=== PATIENT | female | born 1995 | race Caucasian/White ===

== ENCOUNTER → 2018-11-14 | Outpatient (CLI) | payer OTHER ==
--- NOTE | 2018-11-14 14:51 | Diagnostic Imaging Report ---
EXAMINATION: CHEST (PA AND LATERAL) CLINICAL INDICATION: 23-year-old female, cystic fibrosis, cough. COMPARISON: None available. FINDINGS: Heart size and mediastinal contours are unremarkable. There is no identified pneumothorax. There is no pleural effusion. There is no identified focal airspace consolidation. IMPRESSION: No identified acute cardiopulmonary abnormality. Dictated by: Dictated on workstation # [id number]
== END ==
LOC: RAD 14:16
PROVIDERS: ATTEND Internal Medicine
DX: E84.9 Cystic fibrosis, unspecified (principal)
CPT/HCPCS: 71046

== ENCOUNTER 2020-05-25 22:02 | Emergency (ER) | payer OTHER ==
[~2020-05-25] VITALS: Ht 170 cm; Wt 70.0 kg
[2020-05-25] MEDS ORDERED: ANTACID SUSP 30 ML UDC (MYLANTA) PO ONE (22:30)
[2020-05-25] MEDS ORDERED: LIDOCAINE 2% VISCOUS 15 ML UDC PO ONE (22:30)
[2020-05-25] MEDS ORDERED: ONDANSETRON 4 MG (ZOFRAN) ORAL DISSOLVE TAB SL STA (22:30)
[2020-05-25] MEDS ORDERED: PANTOPRAZOLE 40 MG (PROTONIX) TAB PO ONE (23:00)
--- NOTE | 2020-05-25 23:02 | ED Abdominal Pain ---
General Chief Complaint: Abdominal/GI Problems Stated Complaint: ABD PAIN,SHARP PAIN,CYTIC FIBROSIS Nursing Triage Note: C/O PAIN IN EPIGASTRIC AREA, VERBALIZES "HURTS SO BAD I CANT TAKE A DEEP BREATH". PATIENT IS ALERT AND ORIENTED, INDEPENDENT IN ROOM CALL LIGHT IN REACH, MONITORING MAINTAINED. Sepsis Screen: No Definite Risk Source of Information: Patient Exam Limitations: No Limitations History of Present Illness Date Seen by Provider: May 25, 2020 Time Seen by Provider: 22:20 Initial Comments This 24-year-old young lady presents to the emergency room with epigastric and lower chest pain. She has pain with deep inspiration. She has cystic fibrosis and takes pancreatic enzymes. She generally does not have any GI issues and denies constipation or diarrhea. She has had pain similar to this in the past that normally resolves when she eats or drinks something. Pain did not resolve with eating or drinking tonight. Her pain started several hours ago tonight. Allergies and Home Medications Allergies Coded Allergies: ibuprofen (Verified Allergy, Intermediate, Hives, 05/25/20) Patient Home Medication List Home Medication List Reviewed: Yes Review of Systems Review of Systems Constitutional: no symptoms reported EENTM: No Symptoms Reported Respiratory: See HPI Cardiovascular: No Symptoms Reported Gastrointestinal: See HPI Genitourinary: No Symptoms Reported Musculoskeletal: no symptoms reported Skin: no symptoms reported Psychiatric/Neurological: No Symptoms Reported Endocrine: No Symptoms Reported Hematologic/Lymphatic: No Symptoms Reported Past Vtziowv-Zvymqi-Kbemce Hx Past Med/Social Hx: Reviewed Nursing Past Med/Soc Hx Patient Social History Alcohol Use: Denies Use Recreational Drug Use: No Recent Foreign Travel: No Contact w/Someone Who Travel: No Recent Infectious Disease Expo: No Recent Hopitalizations: No Physical Abuse: No Sexual Abuse: No Mistreated: No Fear: No Immunizations Up To Date PED Vaccines UTD: Yes Seasonal Allergies Seasonal Allergies: No Past Medical History Surgeries: No Respiratory: Yes (CYSTIC FIBROSIS) Asthma Currently Using CPAP: No Currently Using BIPAP: No Cardiac: No Neurological: No : No Last Menstrual Period: May 11, 2020 Reproductive Disorders: No Genitourinary: No Gastrointestinal: No Musculoskeletal: No Endocrine: No HEENT: No Cancer: No Psychosocial: No Integumentary: No Blood Disorders: No Physical Exam Vital Signs Vital Signs - First Documented 05/25/20 22:15 Temp 36.3 Pulse 64 Resp 18 B/P (MAP) 119/81 (94) Pulse Ox 97 Capillary Refill : Less Than 3 Seconds Height/Weight/BMI Height: '" Weight: lbs. oz. 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, no motor/sensory deficits, alert, normal mood/affect, oriented x 3 Skin: normal color, warm/dry Progress/Results/Core Measures Results/Orders My Orders Orders - JUAN ANTONIO MASON MD Ondansetron Oral Dissolve Tab (Zofran (05/25/20 22:30) Antacid Suspension (Mylanta Suspension (05/25/20 22:30) Lidocaine 2% Viscous 15 Ml (Xylocaine Vi (05/25/20 22:30) Pantoprazole Tablet (Protonix Tablet) (05/25/20 23:00) Medications Given in ED Current Medications Medications Dose Ordered Sig/Yadira Route Start Time Stop Time Status Last Admin Dose Admin Al Hydrox/Mg Hydrox/Simethicone 30 ml ONCE ONCE PO 05/25/20 22:30 05/25/20 22:32 DC 05/25/20 22:35 30 ML Lidocaine HCl 15 ml ONCE ONCE PO 05/25/20 22:30 05/25/20 22:32 DC 05/25/20 22:36 15 ML Pantoprazole Sodium 40 mg ONCE ONCE PO 05/25/20 23:00 05/25/20 23:01 DC 05/25/20 23:02 40 MG Vital Signs/I&O 05/25/20 05/25/20 22:15 23:07 Temp 36.3 Pulse 64 66 Resp 18 18 B/P (MAP) 119/81 (94) 107/76 (94) Pulse Ox 97 97 Blood Pressure Mean: 94 Progress Progress Note : Progress Note Patient received Zofran and a GI cocktail. This improved her pain from 5 or 6 down to 2 or 3. She was satisfied with the improvement. She was further treated with Protonix. Discharge instructions were reviewed and she was invited to call or return if symptoms worsen. Departure Impression Primary Impression: Epigastric pain Disposition: HOME, SELF-CARE Condition: Improved Departure-Patient Inst. Decision time for Depature: 23:00 Referrals: LUKE SUÁREZ MD (PCP/Family) Primary Care Physician Patient Instructions: Acid Reflux and GERD in Adults (DC), Gastritis, Severe Abdominal Pain, Adult (DC) Add. Discharge Instructions: Try an antacid medication such as Pepcid (famotidine) 20 mg twice daily or omeprazole 20 mg daily for the next 2 weeks. Continue to take an antacid for full 2 weeks even if you feel better to lower your stomach time to heal. Avoid the following: Eating large meals, eating close to bedtime, caffeine, carbonation, chocolate, citrus fruits and juices, alcohol, tobacco, tomato products, mints, fatty or greasy foods, spicy foods, NSAID medications such as ibuprofen, or anything else you know irritates your stomach. Call or return to care if you have worsening symptoms. If you follow these measures, your pain should gradually improve over the next several days. All discharge instructions reviewed with patient and/or family. Voiced understanding. JUAN ANTONIO MASON MD May 25, 2020 23:01
[2020-05-25 23:07] VITALS: BP 107/76
== END 2020-05-25 23:07 | disposition home or self-care (01) ==
LOC: EDUNIT# 22:02 → ER 22:04
DX: R10.13 Epigastric pain (principal); Z88.6 Allergy status to analgesic agent
CPT/HCPCS: 99283

== ENCOUNTER 2020-05-26 01:20 | Emergency (ER) | payer OTHER ==
[~2020-05-26] VITALS: Ht 170 cm; Wt 68.2 kg
[2020-05-26] MEDS ORDERED: FAMOTIDINE 20MG/2ML IV (PEPCID) IVP ONE (01:30)
[2020-05-26] MEDS ORDERED: methylPREDNISolone 125 MG (Solu-MEDROL) VIAL IVP ONE (01:30)
[2020-05-26] MEDS ORDERED: diphenhydrAMINE 50 MG/ML INJ (BENADRYL) IVP ONE (01:30)
[2020-05-26 01:38] LABS: BASOPHILS % (AUTO) 0 % (0-10); EOSINOPHILS # (AUTO) 0.1 10^3/uL (0.0-0.3); EOSINOPHILS % (AUTO) 1 % (0-10); HEMATOCRIT 39 % (35-52); HEMOGLOBIN 14.1 G/DL (11.5-16.0); LYMPHOCYTES # (AUTO) 2.9 X 10^3 (1.0-4.0); LYMPHOCYTES % (AUTO) 29 % (12-44); MEAN CORPUSCULAR HEMOGLOBIN 30 PG (25-34); MEAN CORPUSCULAR HGB CONC 36 G/DL (32-36); MEAN CORPUSCULAR VOLUME 84 FL (80-99); MEAN PLATELET VOLUME 10.5 FL (7.4-10.4); MONOCYTES # (AUTO) 0.7 X 10^3 (0.0-1.0); MONOCYTES % (AUTO) 7 % (0-12); NEUTROPHILS # (AUTO) 6.4 X 10^3 (1.8-7.8); NEUTROPHILS % (AUTO) 63 % (42-75); PLATELET COUNT 233 10^3/uL (130-400); WHITE BLOOD COUNT 10.1 10^3/uL (4.3-11.0)
[2020-05-26 01:42] LABS: BILIRUBIN,URINE NEGATIVE (NEGATIVE); CLARITY,URINE CLEAR; COLOR,URINE YELLOW; GLUCOSE, URINE (UA) NEGATIVE (NEGATIVE); KETONES,URINE NEGATIVE (NEGATIVE); LEUKOCYTE ESTERASE ,URINE NEGATIVE (NEGATIVE); NITRITE,URINE NEGATIVE (NEGATIVE); PROTEIN,URINE NEGATIVE (NEGATIVE)
[2020-05-26 01:49] LABS: BACTERIA,URINE NEGATIVE /HPF; SQUAMOUS EPITHELIAL CELL,UR RARE /HPF
[2020-05-26 01:55] LABS: ALANINE AMINOTRANSFERASE 404 U/L (0-55); ALBUMIN 4.3 GM/DL (3.2-4.5); ALKALINE PHOSPHATASE 107 U/L (40-136); BILIRUBIN,TOTAL 0.9 MG/DL (0.1-1.0); BUN/CREATININE RATIO 29; CALCIUM 8.9 MG/DL (8.5-10.1); CARBON DIOXIDE 26 MMOL/L (21-32); CHLORIDE 100 MMOL/L (98-107); CREATININE SERUM 0.75 MG/DL (0.60-1.30); GFR ESTIMATED > 60; GLUCOSE 122 MG/DL (70-105); LIPASE 6 U/L (8-78); POTASSIUM 3.7 MMOL/L (3.6-5.0); SODIUM 136 MMOL/L (135-145); TOTAL PROTEIN 7.3 GM/DL (6.4-8.2)
[2020-05-26] MEDS ORDERED: NS IV 500 ML 500 ML IV ONE (02:17)
--- NOTE | 2020-05-26 02:17 | ED General ---
General Chief Complaint: Allergic Reaction Stated Complaint: ALLERGIC RXN Nursing Triage Note: c/o generalized itching/hives since approx. 0030 Nursing Sepsis Screen: No Definite Risk Source of Information: Patient Exam Limitations: No Limitations History of Present Illness Date Seen by Provider: May 26, 2020 Time Seen by Provider: 02:44 Initial Comments This 24-year-old young lady presents to the emergency room with sudden onset of hives and itching starting around 00:30. She had been seen earlier in the evening at this ER for epigastric pain. She was treated with a GI cocktail and Zofran. She was monitored for a short period of time afterwards and had improved symptoms. She was dismissed home but was given a dose of oral Protonix prior to dismissal. The Protonix was given a little over an hour prior to onset of her rash. She feels like she has some swelling of her face and throat as well. She is in no respiratory distress. There is no obvious swelling of her face, lips, tongue, or throat. She took a dose of cetirizine prior to coming to the emergency room. Allergies and Home Medications Allergies Coded Allergies: ibuprofen (Verified Allergy, Intermediate, Hives, 05/25/20) pantoprazole (Verified Allergy, Intermediate, Hives, 05/26/20) Patient Home Medication List Home Medication List Reviewed: Yes Review of Systems Review of Systems Constitutional: no symptoms reported EENTM: no symptoms reported Respiratory: no symptoms reported Cardiovascular: no symptoms reported Gastrointestinal: see HPI Genitourinary: no symptoms reported Musculoskeletal: no symptoms reported Skin: see HPI Psychiatric/Neurological: No Symptoms Reported Hematologic/Lymphatic: No Symptoms Reported Immunological/Allergic: see HPI Past Lhdhknh-Jvoekd-Vjjcxf Hx Past Med/Social Hx: Reviewed Nursing Past Med/Soc Hx Patient Social History Alcohol Use: Denies Use Recreational Drug Use: No Smoking Status: Never a Smoker Recent Foreign Travel: No Contact w/Someone Who Travel: No Recent Infectious Disease Expo: No Recent Hopitalizations: No Physical Abuse: No Sexual Abuse: No Mistreated: No Fear: No Immunizations Up To Date Tetanus Booster (TDap): Unknown PED Vaccines UTD: Yes Seasonal Allergies Seasonal Allergies: No Past Medical History Surgeries: No Respiratory: Yes (CYSTIC FIBROSIS) Asthma Currently Using CPAP: No Currently Using BIPAP: No Cardiac: No Neurological: No : No Reproductive Disorders: No Genitourinary: No Gastrointestinal: No Musculoskeletal: No Endocrine: No HEENT: No Cancer: No Psychosocial: No Integumentary: No Blood Disorders: No Physical Exam Vital Signs Vital Signs - First Documented 05/26/20 01:20 Temp 37.1 Pulse 57 Resp 18 B/P (MAP) 114/61 (78) Pulse Ox 97 O2 Delivery Room Air Capillary Refill : Less Than 3 Seconds Height, Weight, BMI Height: '" Weight: lbs. oz. kg; 23.00 BMI Method: General Appearance: No Apparent Distress, WD/WN HEENT: PERRL/EOMI, Normal ENT Inspection, Pharynx Normal Neck: Normal Inspection Respiratory: Lungs Clear, Normal Breath Sounds, No Accessory Muscle Use Cardiovascular: Regular Rate, Rhythm, No Edema, No Murmur Gastrointestinal: Normal Bowel Sounds, Non Tender, Soft Extremity: Normal Inspection, No Pedal Edema Neurologic/Psychiatric: Alert, Oriented x3, No Motor/Sensory Deficits, Normal Mood/Affect, urologist md II-XII Norm as Tested Skin: Warm/Dry, Rash (scattered macular erythematous rash, possibly mild hives) Progress/Results/Core Measures Suspected Sepsis Recent Fever Within 48 Hours: No Infection Criteria Present: None New/Unexplained Altered Menta: No Sepsis Screen: No Definite Risk SIRS Temperature: Pulse: 57 Respiratory Rate: 18 Laboratory Tests 05/26/20 01:25: White Blood Count 10.1 Blood Pressure 114 /61 Mean: 78 Laboratory Tests 05/26/20 01:25: Creatinine 0.75, INR Comment 1.0, Platelet Count 233, Total Bilirubin 0.9 Results/Orders Lab Results Laboratory Tests Test 05/26/20 01:25 05/26/20 01:35 Range/Units White Blood Count 10.1 4.3-11.0 10^3/uL Red Blood Count 4.66 4.35-5.85 10^6/uL Hemoglobin 14.1 11.5-16.0 G/DL Hematocrit 39 35-52 % Mean Corpuscular Volume 84 80-99 FL Mean Corpuscular Hemoglobin 30 25-34 PG Mean Corpuscular Hemoglobin Concent 36 32-36 G/DL Red Cell Distribution Width 11.7 10.0-14.5 % Platelet Count 233 130-400 10^3/uL Mean Platelet Volume 10.5 H 7.4-10.4 FL Neutrophils (%) (Auto) 63 42-75 % Lymphocytes (%) (Auto) 29 12-44 % Monocytes (%) (Auto) 7 0-12 % Eosinophils (%) (Auto) 1 0-10 % Basophils (%) (Auto) 0 0-10 % Neutrophils # (Auto) 6.4 1.8-7.8 X 10^3 Lymphocytes # (Auto) 2.9 1.0-4.0 X 10^3 Monocytes # (Auto) 0.7 0.0-1.0 X 10^3 Eosinophils # (Auto) 0.1 0.0-0.3 10^3/uL Basophils # (Auto) 0.0 0.0-0.1 10^3/uL Prothrombin Time 13.7 12.2-14.7 SEC INR Comment 1.0 0.8-1.4 Sodium Level 136 135-145 MMOL/L Potassium Level 3.7 3.6-5.0 MMOL/L Chloride Level 100 98-107 MMOL/L Carbon Dioxide Level 26 21-32 MMOL/L Anion Gap 10 5-14 MMOL/L Blood Urea Nitrogen 22 H 7-18 MG/DL Creatinine 0.75 0.60-1.30 MG/DL Estimat Glomerular Filtration Rate > 60 BUN/Creatinine Ratio 29 Glucose Level 122 H 70-105 MG/DL Calcium Level 8.9 8.5-10.1 MG/DL Corrected Calcium 8.7 8.5-10.1 MG/DL Total Bilirubin 0.9 0.1-1.0 MG/DL Aspartate Amino Transf (AST/SGOT) 681 H 5-34 U/L Alanine Aminotransferase (ALT/SGPT) 404 H 0-55 U/L Alkaline Phosphatase 107 40-136 U/L Total Protein 7.3 6.4-8.2 GM/DL Albumin 4.3 3.2-4.5 GM/DL Lipase 6 L 8-78 U/L Serum Test, Qualitative NEGATIVE NEGATIVE Urine Color YELLOW Urine Clarity CLEAR Urine pH 6.0 5-9 Urine Specific [place] <=1.005 1.016-1.022 Urine Protein NEGATIVE NEGATIVE Urine Glucose (UA) NEGATIVE NEGATIVE Urine Ketones NEGATIVE NEGATIVE Urine Nitrite NEGATIVE NEGATIVE Urine Bilirubin NEGATIVE NEGATIVE Urine Urobilinogen 0.2 < = 1.0 MG/DL Urine Leukocyte Esterase NEGATIVE NEGATIVE Urine RBC (Auto) NEGATIVE NEGATIVE Urine RBC NONE /HPF Urine WBC NONE /HPF Urine Squamous Epithelial Cells RARE /HPF Urine Crystals NONE /LPF Urine Bacteria NEGATIVE /HPF Urine Casts NONE /LPF Urine Mucus NEGATIVE /LPF Urine Culture Indicated NO My Orders Orders - JUAN ANTONIO MASON MD Diphenhydramine Injection (Benadryl Inje (05/26/20 01:30) Famotidine Injection (Pepcid Injection) (05/26/20 01:30) Methylprednisolone Sod Succ (Solu-Medrol (05/26/20 01:30) Cbc With Automated Diff (05/26/20 01:28) Comprehensive Metabolic Panel (05/26/20 01:28) Hcg,Qualitative Serum (05/26/20 01:28) Lipase (05/26/20 01:28) Ua Culture If Indicated (05/26/20 01:28) Hepatitis Panel Acute (05/26/20 02:09) Ns Iv 500 Ml (Sodium Chloride 0.9%) (05/26/20 02:17) Protime With Inr (05/26/20 02:50) Medications Given in ED Current Medications Medications Dose Ordered Sig/Yadira Route Start Time Stop Time Status Last Admin Dose Admin Diphenhydramine HCl 25 mg ONCE ONCE IVP 05/26/20 01:30 05/26/20 01:31 DC 05/26/20 01:37 25 MG Famotidine 20 mg ONCE ONCE IVP 05/26/20 01:30 05/26/20 01:31 DC 05/26/20 01:36 20 MG Methylprednisolone Sodium Succinate 125 mg ONCE ONCE IVP 05/26/20 01:30 05/26/20 01:31 DC 05/26/20 01:36 125 MG Sodium Chloride 500 ml @ 0 mls/hr Q0M ONCE IV 05/26/20 02:17 05/26/20 02:20 DC 05/26/20 02:21 0 MLS/HR Vital Signs/I&O 05/26/20 05/26/20 01:20 02:48 Temp 37.1 37.1 Pulse 57 51 Resp 18 18 B/P (MAP) 114/61 (78) 106/53 (78) Pulse Ox 97 97 O2 Delivery Room Air Room Air Capillary Refill : Less Than 3 Seconds Blood Pressure Mean: 78 Progress Note : Time: 02:47 Progress Note Patient received Pepcid, Solu-Medrol, and Benadryl by IV route with resolution of her symptoms. She had no further abdominal pain. Labs were obtained and she was found to have a significant increase in her AST and ALT from prior labs she was able to access on her phone from March. She reports monitoring her liver labs because of the medication she takes for cystic fibrosis. He has tattoos but they are all over a year old. She denies any IV drug use or exposure to individuals with hepatitis. An acute hepatitis panel has been drawn. A stat ultrasound of the gallbladder and liver was ordered for the morning. She is receiving 500 mL normal saline IV bolus to hydrate her since she will be nothing by mouth for the ultrasound. See discharge instructions. Departure Impression Primary Impression: Allergic reaction to drug Qualified Codes: T78.40XA - Allergy, unspecified, initial encounter Additional Impressions: Elevated liver enzymes Epigastric pain Disposition: HOME, SELF-CARE Condition: Improved Departure-Patient Inst. Decision time for Depature: 02:15 Referrals: LUKE SUÁREZ MD (PCP/Family) Primary Care Physician Patient Instructions: Drug Allergy Add. Discharge Instructions: Please list medications from the proton pump inhibitor (PPI) class on your allergy list. This would include medication such as Protonix (Pantoprazole), Prilosec (omeprazole), Prevacid (lansoprazole), etc. You should be able to safely take Pepcid (famotidine) as an alternative. Obtain some Benadryl (diphenhydramine) and keep on hand for the next couple of days. Take up to 50 mg every 4 hours as needed for rebounding allergy symptoms. If symptoms become severe or cause problems with swelling of the tongue, lips, or throat, please return to the emergency room or call 911. Return to the hospital with your order form at 7:30 a.m. this morning to have a gallbladder and liver ultrasound. Bring your order form with you. Do not eat or drink anything prior to the study. Please stay at the hospital until results are reviewed by Dr. Grimes in the ER and he can provide you with further direction. All discharge instructions reviewed with patient and/or family. Voiced understanding. JUAN ANTONIO MASON MD May 26, 2020 02:17
[2020-05-26 02:48] VITALS: BP 106/53
[2020-05-26 03:00] LABS: PROTHROMBIN TIME PATIENT 13.7 SEC (12.2-14.7)
[2020-05-26 21:48] LABS: HEPATITIS C ANTIBODY C Non-Reactive (Non-Reactive)
== END 2020-05-26 02:50 | disposition home or self-care (01) ==
LOC: EDUNIT# 01:26 → ER 01:27
DX: R10.13 Epigastric pain (principal); T45.0X5A Adverse effect of antiallergic and antiemetic drugs, initial encounter; R94.5 Abnormal results of liver function studies; Z88.6 Allergy status to analgesic agent; Z88.8 Allergy status to other drugs, medicaments and biological substances
CPT/HCPCS: 36415; 80053; 80074; 81000; 83690; 84703; 85025; 85610

== ENCOUNTER → 2020-05-26 | Outpatient (CLI) | payer OTHER ==
--- NOTE | 2020-05-26 08:31 | Diagnostic Imaging Report ---
EXAMINATION: US Abdomen limited. TECHNIQUE: Multiple real-time grayscale images were obtained over the right upper quadrant in various projections. HISTORY: Cystic fibrosis, epigastric pain and elevated liver enzymes COMPARISON: None available. FINDINGS: The liver is normal in size. The liver is mildly increased in echogenicity. No focal lesions are seen. The portal vein is patent with hepatopedal flow. Gallbladder is normal without wall thickening or pericholecystic fluid. Sonographic King sign is negative. Common duct measures 3 mm. There is no biliary ductal dilation. The visualized portions of the pancreas are echogenic suggestive of fatty infiltration. The right kidney shows prominence of renal pelvis consistent with mild hydronephrosis. IMPRESSION: 1. Mild hepatic steatosis. 2. Mild hydronephrosis of the right kidney. Dictated by: Dictated on workstation # [id number]
== END ==
LOC: RAD 07:39
PROVIDERS: ATTEND Family Medicine
DX: K76.0 Fatty (change of) liver, not elsewhere classified (principal); N13.30 Unspecified hydronephrosis; E84.9 Cystic fibrosis, unspecified; R94.5 Abnormal results of liver function studies
CPT/HCPCS: 76705

== ENCOUNTER → 2020-06-08 | Outpatient (CLI) | payer OTHER ==
[2020-06-08 14:18] LABS: ALBUMIN 4.3 GM/DL (3.2-4.5)
[2020-06-08 14:21] LABS: TOTAL PROTEIN 7.2 GM/DL (6.4-8.2)
[2020-06-08 14:23] LABS: BILIRUBIN,TOTAL 0.6 MG/DL (0.1-1.0)
[2020-06-08 14:27] LABS: BILIRUBIN,DIRECT 0.3 MG/DL (0.0-0.3); BILIRUBIN,INDIRECT 0.3 MG/DL
== END ==
LOC: LAB 13:57
PROVIDERS: ATTEND Pediatrics
DX: E84.9 Cystic fibrosis, unspecified (principal); R79.89 Other specified abnormal findings of blood chemistry
CPT/HCPCS: 36415; 80076

== ENCOUNTER → 2020-06-21 | Outpatient (CLI) | payer OTHER ==
[2020-06-21 15:36] LABS: TOTAL PROTEIN 6.5 GM/DL (6.4-8.2)
[2020-06-21 15:37] LABS: BILIRUBIN,TOTAL 0.7 MG/DL (0.1-1.0)
[2020-06-21 15:41] LABS: BILIRUBIN,DIRECT 0.4 MG/DL (0.0-0.3); BILIRUBIN,INDIRECT 0.3 MG/DL
== END ==
LOC: LAB 15:11
PROVIDERS: ATTEND Pediatrics
DX: E84.9 Cystic fibrosis, unspecified (principal); R79.89 Other specified abnormal findings of blood chemistry
CPT/HCPCS: 36415; 80076

== ENCOUNTER 2021-01-28 14:45 | Outpatient (RCR) | payer OTHER | END 2021-01-28 15:30 | disposition home or self-care (01) | DX: M54.2 Cervicalgia (principal) ==